=== PATIENT | female | born 1965 | race Caucasian/White ===

== ENCOUNTER 2017-11-10 07:23 | Observation (INO) ==
--- NOTE | 2017-11-10 08:24 | ED ---
HPI General Chief Complaint: Chest Pain Stated Complaint: chest pain Time Seen by Provider: 11/10/17 08:05 History of Present Illness HPI narrative: The patient was seen and examined in the presence of the nurse. This patient complains of chest discomfort. She has a left upper chest pressure. Duration 3 days. Severity is moderate. She also complains of some nausea and lightheadedness. Does have anxiety issues. No history of cardiac disease. She is a smoker. Symptoms have a severity that is moderate. No alleviating factors. No exacerbating factors. Never had stress testing. Complete Quality Measures for STEMI Alert Patients Related Data Home Medications Medication Instructions Recorded Confirmed levothyroxine mcg PO DAILY 11/10/17 losartan mg PO DAILY 11/10/17 omeprazole 20 mg PO DAILY 11/10/17 11/10/17 potassium chloride meq PO BID 11/10/17 sertraline 25 mg PO DAILY 11/10/17 11/10/17 Allergies Allergy/AdvReac Type Severity Reaction Status Date / Time penicillin G Allergy Severe Swelling Unverified 11/10/17 08:27 of Lip/Tongue/Throat promethazine [From Phenergan] Allergy Hallucinati Verified 11/10/17 08:27 ons Review of Systems ROS: all other systems reviewed are negative [facility] Medical History Medical History Linda esophagus (Acute) GERD (gastroesophageal reflux disease) (Acute) Hypertension (Acute) Hypothyroidism (Acute) Surgical History Surgical History History of tubal ligation (Acute) Hx of appendectomy (Acute) Social History Social History Substance History: No History of Abuse Second Hand Smoke Exposure: No Smoking Status: Current every day smoker Tobacco Type: Cigarettes How Often Do You Have a Drink Containing Alcohol: Never Recent Travel in [facility] within the Last 8 Weeks: No Recent Out of Country Travel within the Last 8 Weeks: No Immunization History Tetanus Immunization: Unsure Hx Influenza Vaccine This Season: Yes Exam Narrative Exam Narrative: GENERAL: Well-nourished, well-developed patient in no apparent distress. SKIN: Focused skin assessment reveals no rash and nodules. Skin is Warm and dry. HEAD: Atraumatic. Normocephalic. EYES: Pupils equal and round. No scleral icterus. No injection or drainage. ENT: No nasal bleeding or discharge. Mucous membranes pink and moist. NECK: Trachea midline. No JVD. CARDIOVASCULAR: Regular rate and rhythm. No murmur appreciated. RESPIRATORY: No accessory muscle use. Clear to auscultation. Breath sounds equal bilaterally. GASTROINTESTINAL: Abdomen soft, non-tender, nondistended. Hepatic and splenic margins not palpable. MUSCULOSKELETAL: No obvious deformities. No clubbing. No cyanosis. No edema. NEUROLOGICAL: Awake and alert. No obvious cranial nerve deficits. Motor grossly within normal limits. Normal speech. PSYCHIATRIC: Appropriate mood and affect; insight and judgment normal. Course Initial Documented Vital Signs Temperature 98.5 F 11/10/17 07:32 Pulse Rate 81 11/10/17 07:32 Respiratory Rate 23 11/10/17 07:32 Blood Pressure 155/74 H 11/10/17 07:32 Pulse Oximetry 97 11/10/17 07:32 Last Documented Vital Signs Temperature 98.5 F 11/10/17 07:32 Pulse Rate 82 11/10/17 08:08 Respiratory Rate 20 11/10/17 08:08 Blood Pressure 117/60 11/10/17 08:08 Pulse Oximetry 97 11/10/17 08:08 Medical Decision Making MDM Narrative Medical decision making narrative: IV placed and labs sent. I reviewed her EKG which shows sinus rhythm but no ST elevation. I gave her aspirin and dose of Zofran. I reviewed her chest x-ray. It is negative. Her labs are reasonably normal. Vitals are normal. She is having some chest discomfort that should be evaluated. She is a cigarette smoker. She will be a 23-hour observation in the chest pain center in order to rule out cardiac cause of her symptoms. Medical Records Medical records reviewed: Yes I reviewed the patient's medical records. Lab Data Lab results reviewed: Yes I reviewed the patient's lab results. Result diagrams: 11/10/17 08:10 11/10/17 08:10 Lab Results 11/10/17 11/10/17 11/10/17 Range/Units 08:10 08:10 08:10 WBC 8.9 (4.0-11.0) th/mm3 RBC 4.48 (4.00-5.30) mil/mm3 Hgb 13.7 (11.6-15.3) gm/dL Hct 39.5 (35.0-46.0) % MCV 88.2 (80.0-100.0) fL MCH 30.6 (27.0-34.0) pg MCHC 34.6 (32.0-36.0) % RDW 14.1 (11.6-17.2) % Plt Count 305 (150-450) th/mm3 MPV 7.7 (7.0-11.0) fL Neut % (Auto) 79.9 H (16.0-70.0) % Lymph % (Auto) 13.8 (9.0-44.0) % [place] % (Auto) 4.6 (0.0-8.0) % Eos % (Auto) 1.2 (0.0-4.0) % Baso % (Auto) 0.5 (0.0-2.0) % Neut # (Auto) 7.1 (1.8-7.7) th/mm3 Lymph # (Auto) 1.2 (1.0-4.8) th/mm3 [place] # (Auto) 0.4 (0.0-0.9) th/mm3 Eos # (Auto) 0.1 (0.0-0.4) th/mm3 Baso # (Auto) 0.0 (0.0-0.2) th/mm3 WBC Differential . Differential Comment Auto diff final PT 10.4 (9.8-11.6) sec INR 1.0 Ratio APTT 28.5 (24.3-30.1) sec Sodium 133 L (136-145) meq/L Potassium 3.5 (3.5-5.1) meq/L Chloride 100 (98-107) meq/L Carbon Dioxide 23.4 (21.0-32.0) meq/L Anion Gap 10 (5-15) meq/L BUN 9 (7-18) mg/dL Creatinine 0.85 (0.50-1.00) mg/dL Estimated GFR 70 L (>89) mL/min Random Glucose 121 H (74-106) mg/dL Calcium 9.1 (8.5-10.1) mg/dL Total Creatine Kinase 95 (26-192) U/L Troponin I Less than 0.02 L (0.02-0.05) ng/mL Imaging Data Radiologist's impression: Chest X-Ray 11/10/17 08:18 CONCLUSION: No acute cardiopulmonary disease Discharge Plan Discharge Disposition Patient Disposition: 30 Still Patient Discharge Details Diagnosis: Chest pain in adult Physicians Team ED Provider: Semaj Pinto Primary Care Provider: Alberto Mckeon Rxs /Orders / Referrals /Forms Prescriptions: No Action potassium chloride 10 mEq Tablet Extended Release PO BID RF: 0 losartan 25 mg Tablet PO DAILY RF: 0 sertraline 25 mg Tablet 25 mg PO DAILY RF: 0 levothyroxine 25 mcg Capsule PO DAILY RF: 0 omeprazole 20 mg Capsule,Delayed Release(Dr/Ec) 20 mg PO DAILY RF: 0 Discharge Instructions Patient Printed Instructions: Chest Pain (ED) Discharge Interventions Interventions: Vital Signs Last Done: 11/10/17 08:08 Status ED Status: With Doctor
[2017-11-10 08:40] LABS: Baso % (Auto) 0.5 % (0.0-2.0); Eos # (Auto) 0.1 th/mm3 (0.0-0.4); Eos % (Auto) 1.2 % (0.0-4.0); Hematocrit 39.5 % (35.0-46.0); Hemoglobin 13.7 gm/dL (11.6-15.3); Lymph # (Auto) 1.2 th/mm3 (1.0-4.8); Lymph % (Auto) 13.8 % (9.0-44.0); Mean Corpuscular HGB Conc 34.6 % (32.0-36.0); Mean Corpuscular Hemoglobin 30.6 pg (27.0-34.0); Mean Corpuscular Volume 88.2 fL (80.0-100.0); Mean Platelet Volume 7.7 fL (7.0-11.0); Mono # (Auto) 0.4 th/mm3 (0.0-0.9); Mono % (Auto) 4.6 % (0.0-8.0); Neut # (Auto) 7.1 th/mm3 (1.8-7.7); Neut % (Auto) 79.9 % (16.0-70.0); Platelet Count 305 th/mm3 (150-450); Red Blood Count 4.48 mil/mm3 (4.00-5.30); Red Cell Distribution Width 14.1 % (11.6-17.2); White Blood Count 8.9 th/mm3 (4.0-11.0)
[2017-11-10 08:46] LABS: Activated Partial Thrombo Time 28.5 sec (24.3-30.1); Prothrombin Time 10.4 sec (9.8-11.6)
[2017-11-10 08:55] LABS: Anion Gap 10 meq/L (5-15); Blood Urea Nitrogen 9 mg/dL (7-18); Calcium 9.1 mg/dL (8.5-10.1); Carbon Dioxide 23.4 meq/L (21.0-32.0); Chloride 100 meq/L (98-107); Glomerular Filtration Rate 70 mL/min (>89); Glucose,Random 121 mg/dL (74-106); Potassium 3.5 meq/L (3.5-5.1); Sodium 133 meq/L (136-145)
[2017-11-10 09:06] LABS: Creatine Kinase 95 U/L (26-192)
--- NOTE | 2017-11-10 09:19 | XR ---
EXAM DATE: 11/10/2017 9:06 AM EDT AGE/SEX: 52 years / Female INDICATIONS: Chest pain CLINICAL DATA: This is the patient's initial encounter. Patient reports that signs and symptoms have been present for 3 days and indicates a pain score of 7/10. MEDICAL/SURGICAL HISTORY: Chronic obstructive pulmonary disease. None. COMPARISON: [facility], CHEST PA & LAT, 01/05/2011. . FINDINGS: A single AP view of the chest demonstrates the lungs to be symmetrically aerated without evidence of mass, infiltrate or effusion. The cardiomediastinal contours are unremarkable. Osseous structures a re intact. CONCLUSION: No acute cardiopulmonary disease Electronically signed by: Lonnie Morgan MD 11/10/2017 9:18 AM EDT
[2017-11-10] MEDS ORDERED: Acetaminophen 500 MG Tablet PO PRN (10:10)
--- NOTE | 2017-11-10 10:49 | P.HPCA ---
History of Present Illness Primary Care Physician: Dr. Salazar[place], [place] Chief Complaint: Chest pain History of Present Illness: 52 year old male with history of hypertension, Linda's esophagus, hypothyroidism, anxiety, and current smoker presents to ER with multiple complaints. Reports fatigue, chest pain, dizziness, poor appetite, and nausea x3 days. Symptoms presented simultaneously. Duration constant. Location of chest pain left anterior chest. Characterizes heaviness. No radiation. No dyspnea. Moderate in severity. No precipitating factors. Movement or position does not make pain better or worse. Laying flat improves chest discomfort somewhat. Denies similar pain in the past. No sick contacts. Describes dizziness as "I am spinning." Duration lasts hours without precipitating or relieving factors. Nausea constant 3 days. No vomiting or changes in bowel habits. Poor appetite. Continues to drink fluids, "I make myself eat a sandwich yesterday." Fatigue 3 days, stating no energy to do anything. No known fever. Endorses intermittent chills and clammy feelings. Unable to sleep last 3 days. Breathing does not make pain better or worse. No increase in cough , no sputum production. History of COPD. Increase in use of rescue inhaler last 3 days for audible wheezing. Past cardiac testing No past cardiac testing. Remote Holter monitor. No known cardiac disease. - Diagnosis (1) Chest pain, atypical (2) Tobacco use (3) Hypertension (4) GERD (gastroesophageal reflux disease) Review of Systems All other systems reviewed negative except as stated in [facility] - History History Provided By: Patient - Medical History Medical History: Medical History (Last Updated 11/10/17 @ 11:17 by RENE Welch) Anxiety Linda esophagus GERD (gastroesophageal reflux disease) Hypertension Hypothyroidism - Surgical History Surgical History: Surgical History (Last Reviewed 11/10/17 @ 11:18 by RENE Welch) History of tubal ligation Hx of appendectomy - Tobacco History Second Hand Smoke Exposure: No Tobacco Use In Past 30 Days: Yes Smoking Status: Current every day smoker Tobacco Type: Cigarettes Packs Per Day: 1 - Alcohol History How Often Do You Have a Drink Containing Alcohol: Never - Substance Use History Substance History: No History of Abuse - Travel History Recent Travel in the [place] Within the Last 8 Weeks: No Recent Travel Out of the Country Within the Last 8 Weeks: No - Immunization History Tetanus Immunization: Unsure Hx Influenza Vaccine This Season: Yes Medications and Allergies Active Medications: Active Medications Acetaminophen (Tylenol) 500 mg PO Q4H PRN PRN Reason: HEADACHE Nitroglycerin (Nitrostat Sl) 0.4 mg SL Q5M PRN PRN Reason: CHEST PAIN Ondansetron HCl (Zofran Inj) 4 mg IV.PUSH Q6H PRN PRN Reason: NAUSEA Sodium Chloride (Ns Flush) 2 ml IV.FLUSH UNSCH PRN PRN Reason: FLUSH AFTER USING IV ACCESS Last Admin: 11/10/17 08:26 Dose: 2 ml Sodium Chloride (Ns Flush) 2 ml IV.FLUSH BID ISELA Allergies Allergy/AdvReac Type Severity Reaction Status Date / Time penicillin G Allergy Severe Swelling Unverified 11/10/17 08:27 of Lip/Tongue/Throat promethazine [From Phenergan] Allergy Hallucinati Verified 11/10/17 08:27 ons Home Medications Medication Instructions Recorded Confirmed Type levothyroxine mcg PO DAILY 11/10/17 History losartan mg PO DAILY 11/10/17 History omeprazole 20 mg PO DAILY 11/10/17 11/10/17 History potassium chloride meq PO BID 11/10/17 History sertraline 25 mg PO DAILY 11/10/17 11/10/17 History Exam Vital signs: Vital Signs 11/10/17 07:32 11/10/17 08:08 11/10/17 10:26 Temperature 98.5 F Pulse Rate 81 82 73 Respiratory Rate 23 20 20 Blood Pressure 155/74 H 117/60 144/76 H Pulse Oximetry 97 97 97 11/10/17 10:28 Temperature Pulse Rate Respiratory Rate Blood Pressure Pulse Oximetry 97 Intake & Output 11/09/17 11/10/17 11/10/17 18:59 06:59 18:59 Weight 90.718 kg Narrative: GENERAL: Alert WN, WD, NAD, pleasant, obese female who appears older than stated age. Tearful during exam. HEAD: NC, AT NECK: Supple, no masses, trachea midline CV: RRR, without murmur, rub, gallop, no JVD. No carotid bruits. Left anterior chest tender with palpation. RESP: Expiratory wheeze bilateral bases, otherwise diminished. No crackles or rhonchi. symmetrical chest rise, nonlabored, able to speak in full sentences ABD: Soft, NT, ND, no masses, positive bowel tones EXT: Pulses +2x4, no dependent edema, bilateral extremities dry MS: Normal tone x4 extremities, nontender, no obvious deformities, full range of motion NEURO: CN II through CN XII grossly intact, motor strength 5/5 PSYCH: A+O x3, flat affect, appropriate speech, mood, insight and judgment. Tearful at times during exam when speaking of mother's . SKIN: Normal turgor, normal texture, no lesions, no rashes, brisk cap refill, even hair distribution Results 11/10/17 08:10 11/10/17 08:10 Cardiac Enzymes 11/10/17 Range/Units 08:10 Troponin I Less than 0.02 L (0.02-0.05) ng/mL Coagulation 11/10/17 Range/Units 08:10 PT 10.4 (9.8-11.6) sec APTT 28.5 (24.3-30.1) sec CBC 11/10/17 Range/Units 08:10 WBC 8.9 (4.0-11.0) th/mm3 RBC 4.48 (4.00-5.30) mil/mm3 Hgb 13.7 (11.6-15.3) gm/dL Hct 39.5 (35.0-46.0) % Plt Count 305 (150-450) th/mm3 Neut # (Auto) 7.1 (1.8-7.7) th/mm3 Lymph # (Auto) 1.2 (1.0-4.8) th/mm3 [place] # (Auto) 0.4 (0.0-0.9) th/mm3 Eos # (Auto) 0.1 (0.0-0.4) th/mm3 Baso # (Auto) 0.0 (0.0-0.2) th/mm3 Comprehensive Metabolic Panel 11/10/17 Range/Units 08:10 Sodium 133 L (136-145) meq/L Potassium 3.5 (3.5-5.1) meq/L Chloride 100 (98-107) meq/L Carbon Dioxide 23.4 (21.0-32.0) meq/L BUN 9 (7-18) mg/dL Creatinine 0.85 (0.50-1.00) mg/dL Calcium 9.1 (8.5-10.1) mg/dL Intake and Output 11/09/17 11/10/17 11/10/17 22:59 06:59 14:59 Other: Weight 90.718 kg Patient Weight 11/11/17 06:59 Weight 90.718 kg EKG interpretations - EKG EKG results cardiology: sinus rhythm, normal axis, normal QRS (NSR, no st t segment changes) Caprini VTE Risk Assessment Caprini VTE Risk Assessment: No/Low Risk (score <= 1) Caprini Risk Assessment Model: Point Value = 1 Point Value = 2 Point Value = 3 Point Value = 5 Age 41-60 Minor surgery BMI > 25 kg/m2 Swollen legs Varicose veins or History of unexplained or recurrent spontaneous Oral contraceptives or hormone replacement Sepsis (< 1 month) Serious lung disease, including pneumonia (< 1 month) Abnormal pulmonary function Acute myocardial infarction Congestive heart failure (< 1 month) History of inflammatory bowel disease Medical patient at bed rest Age 61-74 Arthroscopic surgery Major open surgery (> 45 min) Laparoscopic surgery (> 45 min) Malignancy Confined to bed (> 72 hours) Immobilizing plaster cast Central venous access Age >= 75 History of VTE Family history of VTE Factor V Leiden Prothrombin [id number] Lupus anticoagulant Anticardiolipin antibodies Elevated serum homocysteine Heparin-induced thrombocytopenia Other congenital or acquired thrombophilia Stroke (< 1 month) Elective arthroplasty Hip, pelvis, or leg fracture Acute spinal cord injury (< 1 month) Prophylaxis Regimen: Total Risk Factor Score Risk Level Prophylaxis Regimen 0-1 Low Early ambulation 2 Moderate Order ONE of the following: *Sequential Compression Device (SCD) *Heparin 5000 units SQ BID 3-4 Higher Order ONE of the following medications: *Heparin 5000 units SQ TID *Enoxaparin/Lovenox 40 mg SQ daily (WT < 150 kg, CrCl > 30 mL/min) *Enoxaparin/Lovenox 30 mg SQ daily (WT < 150 kg, CrCl > 10-29 mL/min) *Enoxaparin/Lovenox 30 mg SQ BID (WT < 150 kg, CrCl > 30 mL/min) AND/OR *Sequential Compression Device (SCD) 5 or more Highest Order ONE of the following medications: *Heparin 5000 units SQ TID (Preferred with Epidurals) *Enoxaparin/Lovenox 40 mg SQ daily (WT < 150 kg, CrCl > 30 mL/min) *Enoxaparin/Lovenox 30 mg SQ daily (WT < 150 kg, CrCl > 10-29 mL/min) *Enoxaparin/Lovenox 30 mg SQ BID (WT < 150 kg, CrCl > 30 mL/min) AND *Sequential Compression Device (SCD) Assessment and Plan - Assessment (1) Chest pain, atypical Code(s): R07.89 - Other chest pain Status: Acute Plan: Admitted chest pain center. Continue ACS protocol initiated in ER. First set of EKGs and cardiac enzymes unremarkable. Discomfort constant 3 days. Toradol 30mg IV x1 dose now. Will be seen and evaluated by Dr. Karl Gomez to determine if further cardiac testing warranted. Albuterol nebulizer every 4 hours PRN, first dose now. Verbalized understanding and agreeable to plan of care. (2) Tobacco use Code(s): Z72.0 - Tobacco use Status: Chronic Plan: Strongly encouraged and stressed importance of tobacco cessation. Instructed to quit smoking. (3) Hypertension Code(s): I10 - Essential (primary) hypertension Status: Chronic Plan: Smoking sensation. Continue to monitor. Continue losartan. (4) GERD (gastroesophageal reflux disease) Code(s): K21.9 - Gastro-esophageal reflux disease without esophagitis Status: Acute Plan: Continue omeprazole. (3) Hypertension Qualifiers: Hypertension type: unspecified Qualified Code(s): I10 - Essential (primary) hypertension (4) GERD (gastroesophageal reflux disease) Qualifiers: Esophagitis presence: esophagitis presence not specified Qualified Code(s): K21.9 - Gastro-esophageal reflux disease without esophagitis
[2017-11-10] MEDS ORDERED: Ketorolac Inj 30 MG/ML (IVP) Vial IV.PUSH ONE (11:00)
[2017-11-10 12:04] LABS: Creatine Kinase 92 U/L (26-192)
[2017-11-10 12:27] VITALS: BP 130/72; PULSE 72; RESP 18; TEMP 98.1; O2SAT 95
--- NOTE | 2017-11-10 13:13 | P.PNCA ---
Subjective Interval history: Patient was presented by nurse practitioner and discussed. Her records and documentation were reviewed including her EKG chest x-ray and laboratory data. She was then seen personally in concert with nurse practitioner repeat history was obtained and she was examined. I am in agreement with the documentation as entered and mildly additional comments would be that this patient appears to be fairly severely depressed although she made no statements to suggest thoughts of suicide. Time was spent discussing her situation directly with her and she indicates a realization that she needs to take some definitive action is suggested. In addition the nurse practitioner knows her primary care physician and believe she is of good quality and involved with her patient's. Patient also expresses a good relationship with her primary care physician and a willingness to follow-up with her. In view of her multi-factorial complaints and overlying depression is felt most appropriate to rule her out for ACS, to be sure she is stable, in to refer her back to her primary care physician for ongoing evaluation and therapy. Physical Exam Vital signs: Vital Signs 11/10/17 07:32 11/10/17 08:08 11/10/17 10:26 Temperature 98.5 F Pulse Rate 81 82 73 Respiratory Rate 23 20 20 Blood Pressure 155/74 H 117/60 144/76 H Pulse Oximetry 97 97 97 11/10/17 10:28 11/10/17 12:20 Temperature 98.1 F Pulse Rate 72 Respiratory Rate 18 Blood Pressure 130/72 Pulse Oximetry 97 95 Intake & Output 11/09/17 11/10/17 11/10/17 18:59 06:59 18:59 Weight 90.718 kg Narrative: Patient was examined with the nurse practitioner in the room and I am in agreement with her exam and documentation. Respiratory evaluation revealed some residual expiratory wheezes Cardiovascular evaluation regular sinus rhythm without gallop rub or murmur Abdomen was obese somewhat distended but no pain and no guarding or rebound Psychiatric evaluation suggest that her memory is intact she is oriented and functional but both her affect and her statements indicate fairly severe degree of depression. She is repeatedly tearful when speaking of her mother and her own situation. Assessment and Plan - Assessment (1) Chest pain, atypical Code(s): R07.89 - Other chest pain Status: Acute Plan: Admitted chest pain center. Continue ACS protocol initiated in ER. First set of EKGs and cardiac enzymes unremarkable. Discomfort constant 3 days. Toradol 30mg IV x1 dose now. Certainly has risk factors for cardiac disease and further testing not unreasonable. Will be seen and evaluated by Dr. Karl Gomez to determine if further cardiac testing warranted. Albuterol nebulizer every 4 hours PRN, first dose now. Verbalized understanding and agreeable to plan of care. Addendum This patient's presentation does not suggest cardiac ischemia however she clearly does have risk factors suggesting benefit from eventual further evaluation. Currently however she has dizziness precluding safe exercise stress testing and active bronchospasm. Is felt best at this time to room her out using standard chest pain center protocol and if negative to return her to her primary care physician with whom she has a good relationship for further therapy and when stable further evaluation of her cardiovascular risks. (2) Tobacco use Code(s): Z72.0 - Tobacco use Status: Chronic Plan: Strongly encouraged and stressed importance of tobacco cessation. Instructed to quit smoking. (3) Hypertension Code(s): I10 - Essential (primary) hypertension Status: Chronic Plan: Smoking sensation. Continue to monitor. Continue losartan. (4) GERD (gastroesophageal reflux disease) Code(s): K21.9 - Gastro-esophageal reflux disease without esophagitis Status: Acute Plan: Continue omeprazole. (3) Hypertension Qualifiers: Hypertension type: unspecified Qualified Code(s): I10 - Essential (primary) hypertension (4) GERD (gastroesophageal reflux disease) Qualifiers: Esophagitis presence: esophagitis presence not specified Qualified Code(s): K21.9 - Gastro-esophageal reflux disease without esophagitis
--- NOTE | 2017-11-10 13:46 | ECG ---
Date Performed: 11/10/2017 Time Performed: 07:42:41 PTAGE: 52 years EKG: ECTOPIC ATRIAL RHYTHM POSSIBLE LEFT ATRIAL ENLARGEMENT LOW QRS VOLTAGE IN EXTREMITY LEADS P OSSIBLE RIGHT VENTRICULAR CONDUCTION DELAY ABNORMAL QRS-T ANGLE ABNORMAL ECG NO PREVIOUS TRACING DOCTOR: Jovanny Maxwell Interpretating Date/Time 11/10/2017 13:44:03
[2017-11-10 15:59] LABS: Creatine Kinase 98 U/L (26-192)
--- NOTE | 2017-11-11 16:22 | ECG ---
Date Performed: 11/10/2017 Time Performed: 11:17:04 PTAGE: 52 years EKG: Sinus rhythm ATYPICAL ECG Since the PREVIOUS TRACING , no significant change noted PREVIOUS TRACIN11/10/2017 07.42 DOCTOR: Francisco Javier Chacon Interpretating Date/Time 11/11/2017 16:22:09
== END 2017-11-10 19:25 | disposition home or self-care (01) ==
LOC: NEPGCP 07:23 → NEPC 07:23 → NEDA 07:23 → NEPGCP 11:30
PROVIDERS: ADMIT Internal Medicine Interventional Cardiology; ATTEND Internal Medicine Interventional Cardiology
DX: Z79.899 Other long term (current) drug therapy; R42 Dizziness and giddiness; I10 Essential (primary) hypertension; K22.70 Barrett's esophagus without dysplasia; J44.9 Chronic obstructive pulmonary disease, unspecified; F41.9 Anxiety disorder, unspecified; E03.9 Hypothyroidism, unspecified; Z88.0 Allergy status to penicillin; K21.9 Gastro-esophageal reflux disease without esophagitis; R07.89 Other chest pain; R68.83 Chills (without fever); F17.210 Nicotine dependence, cigarettes, uncomplicated; R11.0 Nausea; R06.2 Wheezing